=== PATIENT | female | born 1950 | race Caucasian/White ===

== ENCOUNTER 2016-08-12 01:30 | Emergency (ER) | payer MEDICARE ==
[~2016-08-12] VITALS: Ht 160 cm; Wt 57.8 kg
[~2016-08-12 01:30] MED LIST: ANTIVERT25 MG OR; ASPIRIN EC81 MG PO; FERRO SEQUELS PO; FISH OIL1000 MG PO; HYDROCO/APAP1 TA9 PO; TRAMADOL HCL50 MG PO; TYLENOL 500MG TAB PO; VITAMIN D32000 UNIT PO; XARELTO10 MG PO; ZPAK PO; [UNRECOGNIZED DRUG - OTHER] PO
[2016-08-12] MEDS ORDERED: LORTAB 10-325 M1 TAB PO (02:04)
[2016-08-12] MEDS ORDERED: MELOXICAM7.5 MG PO (02:05)
[2016-08-12] MEDS ORDERED: ASPIRIN 8181 MG PO (02:05)
[2016-08-12] MEDS ORDERED: MELOXICAM15 MG PO (02:06)
[2016-08-12 02:11] LABS: HEMATOCRIT 43.6 % (37.0-47.0); HEMOGLOBIN 14.2 g/dl (12.0-16.0); IMMATURE GRANULOCYTES 0.3 % (0.0-1.0); MEAN CELL VOLUME 86.9 fL CALC (80.0-100.0); MEAN CORPUSCULAR HGB 28.3 pG CALC (26.0-32.0); MEAN CORPUSCULAR HGB CONC 32.6 g/L CALC (32.0-36.0); NEUT# 7.89 thou/uL (2.00-7.15); RED BLOOD COUNT 5.02 mill/uL (4.20-5.60); RED CELL DISTRI WIDTH 13.3 % (11.5-15.5)
[2016-08-12 02:23] LABS: ALBUMIN 4.7 g/dL (3.2-5.0); ALKALINE PHOSPHATASE 107 u/l (38-126); ANION GAP 16 (6-22 (CALC)); BILIRUBIN, TOTAL 0.5 mg/dL (0.0-1.4); BUN 29 mg/dL (8-23); BUN/CREATININE RATIO 31 (12-20 (CALC)); CALCIUM 10.3 mg/dL (8.4-10.2); CARBON DIOXIDE 27 mmol/l (22-30); CHLORIDE 103 mmol/l (95-108); CREATININE 0.9 mg/dL (0.5-1.0); GFR > 60 ML/MIN (>=60 (CALC)); GFR FOR AFR.AMER. > 60 ML/MIN (>=60 (CALC)); GLUCOSE 104 mg/dL (82-115); POTASSIUM 4.3 mmol/l (3.5-5.1); SGOT/AST 31 u/l (9-36); SGPT/ALT 27 u/l (11-66); SODIUM 141 mmol/l (137-146); TOTAL PROTEIN 8.2 g/dL (6.3-8.2)
[2016-08-12 02:35] LABS: MYOGLOBIN 62 ng/mL (0 - 62)
[2016-08-12 03:44] LABS: ACT PARTIAL THROMBO TIME 27.9 SECONDS (20.0-32.5); INTERNATIONAL NORMALIZED RATIO 0.9 RATIO (0.7-1.3)
[2016-08-12 04:40] VITALS: BP 129/77
== END 2016-08-12 04:44 | disposition short-term general hospital (02) ==
LOC: ED 01:30 → ED-I 01:44 → ED 01:44 → ED-I 02:30 → ED 04:44
PROVIDERS: Emergency Medicine
DX: R07.9 Chest pain, unspecified (principal); R00.2 Palpitations; R94.31 Abnormal electrocardiogram [ECG] [EKG]; R79.89 Other specified abnormal findings of blood chemistry

== ENCOUNTER 2018-02-20 20:33 | Observation (INO) | payer MEDICARE ==
[~2018-02-20] VITALS: Ht 165.1 cm; Wt 58.8 kg
[~2018-02-20 20:33] MED LIST changes: +ASPIRIN 8181 MG PO; +LORTAB 10-325 M1 TAB PO; +MELOXICAM15 MG PO; +MELOXICAM7.5 MG PO
[2018-02-20] MEDS ORDERED: CRESTOR5 MG PO (21:06)
[2018-02-20] MEDS ORDERED: METOPROL TAR25 MG PO (21:06)
[2018-02-20] MEDS ORDERED: ZESTRIL10 M1 PO (21:07)
[2018-02-20 21:22] LABS: HEMATOCRIT 42.3 % (37.0-47.0); HEMOGLOBIN 13.7 g/dl (12.0-16.0); IMMATURE GRANULOCYTES 0.3 % (0.0-5.0); MEAN CELL VOLUME 86.3 fL CALC (80.0-100.0); MEAN CORPUSCULAR HGB CONC 32.4 g/L CALC (32.0-36.0); NEUT# 7.07 thou/uL (2.00-7.15); RED BLOOD COUNT 4.9 mill/uL (4.20-5.60); RED CELL DISTRI WIDTH 13.1 % (11.5-15.5)
[2018-02-20 21:32] LABS: ALBUMIN 4.6 g/dL (3.2-5.0); ALKALINE PHOSPHATASE 82 u/l (38-126); AMYLASE 117 u/l (30-110); ANION GAP 13 (6-22 (CALC)); BILIRUBIN, TOTAL 0.5 mg/dL (0.0-1.4); BUN 34 mg/dL (8-23); BUN/CREATININE RATIO 30 (12-20 (CALC)); CARBON DIOXIDE 28 mmol/l (22-30); CHLORIDE 103 mmol/l (95-108); CREATININE 1.1 mg/dL (0.5-1.0); GFR 49 ML/MIN (>=60 (CALC)); GFR FOR AFR.AMER. 60 ML/MIN (>=60 (CALC)); LIPASE 97 u/l (23-300); POTASSIUM 4.4 mmol/l (3.5-5.1); SGOT/AST 25 u/l (9-36); SODIUM 141 mmol/l (137-146)
[2018-02-20 21:45] LABS: MYOGLOBIN 42 ng/mL (0 - 62)
--- NOTE | 2018-02-20 22:28 | NUR ---
PT C/O BACK PAIN GETTING WORSE. NOTIFIED.
--- NOTE | 2018-02-20 23:25 | NUR ---
PT UP TO BR TO VOID
--- NOTE | 2018-02-21 00:22 | NUR ---
DR TO BEDSIDE TO RE-EVAL
--- NOTE | 2018-02-21 01:16 | NUR ---
PT IS NOW PAIN FREE. REPORT TO RICKY AGUILAR
--- NOTE | 2018-02-21 01:20 | NUR ---
PT TO FLOOR VIA STRETCHER WITH POCKET MONITOR. STATES PAIN IS GONE... WE GOT ON THE ELEVATOR...PT FELT LIKE SHE WAS GOING TO VOMIT...PT DELIVERED TO ROOM. NO VOMITING.
[2018-02-21 01:25] VITALS: BP 149/77
--- NOTE | 2018-02-21 01:46 | NUR ---
PT ARRVIED TO UNIT AT 0122 VIA STRETCHER WITH ER STAFF. PT AMBULATED TO BED WITH ONE PERSON ASSIST; ALERT AND ORIENTED. C/O MILD BACK PAIN AND NAUSEA AFTER BEING ON THE ELEVATOR. STATES THAT THE DILAUDID WAS EFFECTIVE FOR HER ABDOMINAL PAIN. RESPIRATIONS EVEN AND UNLABORED ON ROOM AIR. VS STABLE AND BLOOD PRESSURE DOWN FROM IN ER. PT REPORTS LAST BM WAS YESTERDAY AFTERNOON AND FELT NORMAL; ABDOMEN IS SOFT AND TENDER; BOWEL SOUNDS HYPOACTIVE. PT BECAME TEARFUL WHEN DISCUSSING HER CHRONIC PAIN AND PAIN MANAGEMENT STATING, "I KNOW I'M PROBABLY ADDICTED TO THE PAIN MEDS, BUT MY KNEE HAS NEVER RECOVERED SINCE THE SURGERY." ORIENTED TO ROOM AND CALL LIGHT SYSTEM. PLAN OF CARE DISCUSSED. PT ENCOURAGED TO VERBALIZE CONCERNS. STATES UNDERSTANDING. SAFETY MEASURES IN PLACE. CALL LIGHT WITHIN REACH.
--- NOTE | 2018-02-21 04:10 | NUR ---
PT RESTING IN BED WITH EYES CLOSED; AWAKENS SPONTANEOUSLY FOR VS. CONTINUES TO HAVE MILD BACK AND ABDOMINAL PAIN. RESPIRATIONS EVEN AND UNLABORED ON ROOM AIR. TELE ON. IV FLUIDS INFUSING WITHOUT DIFFICULTY; IV SITE APPEARS HEALTHY. NO ACUTE CHANGES IN CONDITION THROUGHOUT THE NIGHT. SAFETY MEASURES IN PLACE; FALL RISK. CALL LIGHT WITHIN REACH.
[2018-02-21 05:06] VITALS: BP 105/63
[2018-02-21 08:15] VITALS: BP 144/59
--- NOTE | 2018-02-21 08:15 | NUR ---
ASSESSMENT IS COMPLETED: IV SITE IS FREE FROM REDNESS OR EDEMA. HR IS REG,PULSES ARE STRONG X4, ABD IS SOFT WITH ACTIVE BS. BREATH SOUNDS ARE CLEAR, BILATERALLY. TELE MONITOR IN PLACE. CONTINUE TO OSBERVE AND MONITOR
[2018-02-21 11:03] VITALS: BP 140/56
[2018-02-21 11:11] LABS: URINE BILIRUBIN - DIPSTICK NEGATIVE (NEGATIVE); URINE BLOOD DIPSTICK SMALL (NEGATIVE); URINE COLOR YELLOW; URINE GLUCOSE - DIPSTICK NEGATIVE (NEGATIVE); URINE KETONE TRACE mg/dL (NEGATIVE); URINE LEUK ESTERASE TRACE (NEGATIVE); URINE NITRITE - DIPSTICK NEGATIVE (Negative); URINE PROTEIN - DIPSTICK NEGATIVE (NEG-TRACE); URINE SPECIFIC GRAVITY 1.015; URINE UROBILINOGEN - DIPSTICK 0.2 E.U./dL (0.2)
[2018-02-21 11:22] LABS: URINE CLARITY TURBID
[2018-02-21 11:26] LABS: URINE SQUAMOUS EPITHELIAL CELL FEW EPI/hpf (0-FEW)
--- NOTE | 2018-02-21 12:00 | NUR ---
PT IS RELAXING IN BED , HAS BEEN UP TO VOID, NO DISTRESS NOTED. IV SITE IS FREE FROM REDNESS OR EDEMA. CONTINUE TO OSBERVE AND MONITOR.
[2018-02-21] MEDS ORDERED: MIRALAX3350 NF PO (12:46)
--- NOTE | 2018-02-21 14:33 | NUR ---
Spoke with patient about medications. She had no questions at this time about therapy. Counseled about opioid constipation and safe laxative options to use for opioid constipation. Patient understood information given and was told to contact pharmacy with any further questions.
[2018-02-21 15:17] VITALS: BP 131/53
--- NOTE | 2018-02-21 16:15 | NUR ---
IV SITE DISCONTINEUD CATHETER INTACT. WAITING ON PT TO HAVE A BM. PRIOR TO DISCHARGE. CONITNUE TO OSBERVE AND MONITOR.
--- NOTE | 2018-02-21 20:50 | NUR ---
Discharge instructions given. Patient verbalizes understanding of same. Discharged in good condition via Wheelchair to Home with family. All belongings sent with pt.
== END 2018-02-21 20:00 | disposition home or self-care (01) ==
LOC: ED 20:33 → ED-I 02-21 → ED 02-21 00:32 → MS2 02-21 00:33
PROVIDERS: Emergency Medicine; ADMIT Internal Medicine; ATTEND Internal Medicine
DX: K59.09 Other constipation (principal); I10 Essential (primary) hypertension; E78.5 Hyperlipidemia, unspecified; I25.2 Old myocardial infarction; M25.561 Pain in right knee; M54.5 Low back pain; G89.29 Other chronic pain; M19.90 Unspecified osteoarthritis, unspecified site; Z79.891 Long term (current) use of opiate analgesic; R07.9 Chest pain, unspecified
CPT/HCPCS: Q9967; S0164

== ENCOUNTER 2018-05-11 07:27 | Observation (INO) | payer MEDICARE ==
[~2018-05-11] VITALS: Ht 162.6 cm; Wt 56.0 kg
[~2018-05-11 07:27] MED LIST changes: +CRESTOR5 MG PO; +METOPROL TAR25 MG PO; +MIRALAX3350 NF PO; +ZESTRIL10 M1 PO
--- NOTE | 2018-05-11 07:44 | NUR ---
TO TX ROOM
[2018-05-11 08:59] LABS: HEMATOCRIT 41.9 % (37.0-47.0); HEMOGLOBIN 13.8 g/dl (12.0-16.0); IMMATURE GRANULOCYTES 0.3 % (0.0-5.0); MEAN CELL VOLUME 86.9 fL CALC (80.0-100.0); MEAN CORPUSCULAR HGB 28.6 pG CALC (26.0-32.0); MEAN CORPUSCULAR HGB CONC 32.9 g/L CALC (32.0-36.0); NEUT# 8.75 thou/uL (2.00-7.15); RED BLOOD COUNT 4.82 mill/uL (4.20-5.60); RED CELL DISTRI WIDTH 13.1 % (11.5-15.5)
[2018-05-11 09:16] LABS: ALBUMIN 4.7 g/dL (3.2-5.0); ALKALINE PHOSPHATASE 73 u/l (38-126); ANION GAP 15 (6-22 (CALC)); BILIRUBIN, TOTAL 0.7 mg/dL (0.0-1.4); BUN 23 mg/dL (8-23); BUN/CREATININE RATIO 21 (12-20 (CALC)); CARBON DIOXIDE 28 mmol/l (22-30); CHLORIDE 100 mmol/l (95-108); CREATININE 1.1 mg/dL (0.5-1.0); GFR 49 ML/MIN (>=60 (CALC)); GFR FOR AFR.AMER. 59 ML/MIN (>=60 (CALC)); LIPASE 73 u/l (23-300); POTASSIUM 4.8 mmol/l (3.5-5.1); SGOT/AST 25 u/l (9-36); SODIUM 139 mmol/l (137-146); TOTAL PROTEIN 7.9 g/dL (6.3-8.2)
--- NOTE | 2018-05-11 09:29 | NUR ---
PT STATES SHE TOOK 325 ASA THIS AM AT 0710. HELD ORDERED ASA.
--- NOTE | 2018-05-11 10:30 | NUR ---
RESTING QUIETLY AWAITING TEST RESULTS
--- NOTE | 2018-05-11 11:30 | NUR ---
RESTING QUIETLY. AWAITING DISPO.
--- NOTE | 2018-05-11 12:55 | NUR ---
Admission Note Report Given to: RICKY PERKINS Transported by: Wheelchair X Stretcher Transported with: X Nurse Transporter X Patent IV O2 X Filer And Sander
[2018-05-11 13:00] VITALS: BP 140/65
--- NOTE | 2018-05-11 14:00 | NUR ---
PT RECEIVED TO MED/SURG FLOOR WITH PARTIAL SBO. NO COMPLAINT OF EXTREME PAIN, BUT SHE IS VERY AWARE AND UNCOMFORTABLE WITH NG TUBE. ADMISSION ASSESSMENT COMPLETE, PT RESTS IN THE BED IN MODERATE DISCOMFORT. DR PINZON HAS SEEN PT.
[2018-05-11 14:09] LABS: URINE BILIRUBIN - DIPSTICK NEGATIVE (NEGATIVE); URINE BLOOD DIPSTICK TRACE-LYSED (NEGATIVE); URINE COLOR YELLOW; URINE GLUCOSE - DIPSTICK NEGATIVE (NEGATIVE); URINE KETONE NEGATIVE (NEGATIVE); URINE LEUK ESTERASE NEGATIVE (NEGATIVE); URINE NITRITE - DIPSTICK NEGATIVE (Negative); URINE PROTEIN - DIPSTICK NEGATIVE (NEG-TRACE); URINE SPECIFIC GRAVITY <=1.005; URINE UROBILINOGEN - DIPSTICK 0.2 E.U./dL (0.2)
[2018-05-11 16:03] VITALS: BP 117/62
--- NOTE | 2018-05-11 19:12 | NUR ---
PT IS IN BED, NGTUB TO KELVIN ON LOW INTERMITTENT SUCTION W/SMALL AMOUNT OF YELLOW OUTPUT. PT REPORTS THAT PAIN MEDICATION IS MAKING HER FEEL DIZZY AND WEIRD, BUT THAT DISCOMFORT IS GONE. PT REQUESTED LIGHTS TURNED OFF AND TV LEFT ON LOW. PT ENCOURAGED TO CALL NEEDS ARISE.
[2018-05-11 19:15] VITALS: BP 119/71
--- NOTE | 2018-05-11 21:33 | NUR ---
PT ASSESSED, NGT CHECKED FOR PLACEMENT, DRAINING YELLOW/GREEN FLUID ON LOW INTERMITTENT SUCTION, ABD SOFT NON-TENDER W/HYPO-ACTIVE BOWEL SOUNDS, LUNG SOUNDS ARE CLEAR, PT LOCX4, NO NOTED EDEMA, NEURO'S INTACT. V/S ASSESSED. WILL CONTINUE TO MONITOR. CALL LIGHT AT SIDE AND PT ENCOURAGED TO CALL NEEDS ARISE. DENIES ANY OTHER NEEDS AT THIS TIME.
--- NOTE | 2018-05-12 03:45 | NUR ---
PT ASSISTED TO BSC AND BACK TO BED. NGT DRAINING YELLOW/GREEN FLUID ON LOW INTERMITTENT SUCTION. V/S ARE BEING OBTAINED AT THIS TIME. AIDE IN W/PT.
[2018-05-12 04:10] VITALS: BP 134/68
--- NOTE | 2018-05-12 05:26 | NUR ---
PT CALLED TO REPORT THAT "GASTROGRAFIN IS MAKING MY HEART RACE." V/S ASSESSED BP 153/82,HR82. ED REPORTS ON TELEMETRY READING SR89. DENIES SOB, REPORTS IT FEELING LIKE IT IS "JUST BEATING FAST." ORDERED STAT EKG, WILL AWAIT RESULTS AND NOTIFY PHYSICIAN.
[2018-05-12 06:06] LABS: HEMATOCRIT 40.3 % (37.0-47.0); HEMOGLOBIN 12.9 g/dl (12.0-16.0); IMMATURE GRANULOCYTES 0.1 % (0.0-5.0); MEAN CELL VOLUME 87.4 fL CALC (80.0-100.0); NEUT# 5.08 thou/uL (2.00-7.15); RED BLOOD COUNT 4.61 mill/uL (4.20-5.60); RED CELL DISTRI WIDTH 13.2 % (11.5-15.5)
[2018-05-12 06:30] LABS: ALBUMIN 3.9 g/dL (3.2-5.0); ALKALINE PHOSPHATASE 65 u/l (38-126); AMYLASE 110 u/l (30-110); ANION GAP 14 (6-22 (CALC)); BILIRUBIN, TOTAL 0.8 mg/dL (0.0-1.4); BUN 17 mg/dL (8-23); BUN/CREATININE RATIO 17 (12-20 (CALC)); CARBON DIOXIDE 25 mmol/l (22-30); CHLORIDE 103 mmol/l (95-108); GFR 55 ML/MIN (>=60 (CALC)); GFR FOR AFR.AMER. > 60 ML/MIN (>=60 (CALC)); LIPASE 108 u/l (23-300); MAGNESIUM 2.2 mg/dL (1.6-2.3); POTASSIUM 4.2 mmol/l (3.5-5.1); SGOT/AST 16 u/l (9-36); SODIUM 138 mmol/l (137-146); TOTAL PROTEIN 6.4 g/dL (6.3-8.2)
--- NOTE | 2018-05-12 07:45 | NUR ---
REPORT RECIEVED FROM RICKY VELASQUEZ. PT SITTING UPRIGHT IN BED. FLAT AFFECT. REPORTS HEADACHE AND PAIN TO NOSE/THROAT R/T NGT. NGT TO LIWS. PLAN OF CARE DISCUSSED. REPORTING OF CONCERNS ENCOURAGED. CALL LIGHT REVIEWED AND IN REACH. PT STATES UNDERSTANDING.
[2018-05-12 09:35] VITALS: BP 141/55
--- NOTE | 2018-05-12 13:00 | NUR ---
NGT REMOVED PER DR PINZON AND JASON LANDEROS
--- NOTE | 2018-05-12 16:51 | NUR ---
PT TOLERATING CLEAR LIQUIDS. DENIES NAUSEA AND ABD PAIN. STILL REPORTS HEADACHE. JASON LANDEROS NOTIFIED.
[2018-05-12 17:00] VITALS: BP 140/58
--- NOTE | 2018-05-12 19:15 | NUR ---
PT RESTING QUIETLY IN BED. UP TO RESTROOM AT THIS TIME WITH STEADY GAIT. C/O OF LINGERING HEADACHE. NO NEEDS AT THIS TIME. CALL JAIN IN REACH. WILL CONTINUE TO MONITOR.
[2018-05-12 20:05] VITALS: BP 125/67
--- NOTE | 2018-05-12 21:21 | NUR ---
PT RESTING IN BED. WITH EYES CLOSED WAKES TO VERBAL STIMULI. HEADACHE HAS RESOLVED. ASSESMENT COMPLETED AT THIS TIME(SEE INTERVENTIONS) LUNG SOUNDS CLEAR/ WITH DIMINISHED BASES ON RIGHT SIDE. BOWEL SOUNDS HYPO ACTIVE, HEART SOUNDS NORMAL, NO ABD PAIN OR TENDERNESS. NO NEEDS AT THIS TIME. CALL JAIN IN REACH. WILL CONTINUE TO MONITOR.
[2018-05-12 21:55] VITALS: BP 106/64
[2018-05-12 23:35] VITALS: BP 130/77
--- NOTE | 2018-05-13 02:00 | NUR ---
PT ASLEEP AT THIS TIME. NO S/S OF DISTRESS NOTED. CALL JAIN IN REACH. WILL CONTINUE TO MONITOR.
[2018-05-13 04:21] VITALS: BP 148/71
--- NOTE | 2018-05-13 04:50 | NUR ---
PT C/O LEG PAIN. MEDICATED PER ORDER FOR PAIN. NO OTHER NEEDS AT THIS TIME. CALL JAIN IN REACH. WILL CONTINUE TO MONITOR.
--- NOTE | 2018-05-13 04:52 | NUR ---
PT MEDICATED FOR PAIN REPORTED 7/10 HEADACHE AND "JUMPY LEGS." ASSISTED W/PO FLUIDS. DENIES ANY OTHER NEEDS AT THIS TIME. ENCOURAGED TO CALL ASSISTANCE IS NEEDED.
[2018-05-13 05:32] LABS: HEMATOCRIT 36.2 % (37.0-47.0); IMMATURE GRANULOCYTES 0.3 % (0.0-5.0); MEAN CELL VOLUME 86.6 fL CALC (80.0-100.0); MEAN CORPUSCULAR HGB 28.7 pG CALC (26.0-32.0); MEAN CORPUSCULAR HGB CONC 33.1 g/L CALC (32.0-36.0); NEUT# 4.28 thou/uL (2.00-7.15); RED BLOOD COUNT 4.18 mill/uL (4.20-5.60); RED CELL DISTRI WIDTH 12.8 % (11.5-15.5)
[2018-05-13 05:43] LABS: ALBUMIN 3.6 g/dL (3.2-5.0); ALKALINE PHOSPHATASE 58 u/l (38-126); AMYLASE 97 u/l (30-110); ANION GAP 11 (6-22 (CALC)); BILIRUBIN, TOTAL 0.5 mg/dL (0.0-1.4); BUN 9 mg/dL (8-23); BUN/CREATININE RATIO 11 (12-20 (CALC)); CARBON DIOXIDE 26 mmol/l (22-30); CHLORIDE 107 mmol/l (95-108); CREATININE 0.9 mg/dL (0.5-1.0); GFR > 60 ML/MIN (>=60 (CALC)); GFR FOR AFR.AMER. > 60 ML/MIN (>=60 (CALC)); LIPASE 130 u/l (23-300); POTASSIUM 4.1 mmol/l (3.5-5.1); SGOT/AST 14 u/l (9-36); SODIUM 140 mmol/l (137-146)
[2018-05-13 06:11] VITALS: BP 124/51
--- NOTE | 2018-05-13 06:55 | NUR ---
REPORT RECEIVED FROM HELEN WOODWARD; PT AWAKE LAYING IN BED, RESP EVEN AND UNLABORED; VOICE NO CONCERNS; CALL JAIN IN REACH.
[2018-05-13 08:46] VITALS: BP 128/54
--- NOTE | 2018-05-13 08:59 | NUR ---
PT SITTING UP IN BED WATCHING TV; RESP EVEN AND UNLABORED ON ROOM AIR; TELE IN PLACE; READING SR WITH IVCD 79; IVF FLOWING WITHOUT DIFFICULTY; SITE APPEARS HEALTHY; NO NAUSEA OR PAIN; VITALS OBTAINED TEMP 98.8, RESP 16, PULSE 77; B/P 125/54; O2 99 ON ROOM AIR; PT AMBULATORY IN ROOM; MEDICATED PER EMAR; CALL PT DECLINE A SHOWER; HOPING TO GO HOME TODAY; CALL JAIN IN REACH; SAFETY PRECAUTION REINFORCE;
[2018-05-13 11:04] VITALS: BP 115/67
--- NOTE | 2018-05-13 11:42 | NUR ---
DR YOUNGBLOOD AT BEDSIDE TO DISCUSS POC; POSSIBLE DC HOME TODAY;
[2018-05-13 15:19] VITALS: BP 159/84
--- NOTE | 2018-05-13 16:26 | NUR ---
DC INSTRUCTIONS GIVEN TO PT; PT VERBALIZE UNDERSTANDING; STATES SHE'S ABLE TO DRIVE SELF HOME SINCE HER CAR IS IN THE PARKING LOT; IV REMOVE, CATH TIP INTACT;
== END 2018-05-13 16:45 | disposition home or self-care (01) ==
LOC: ED 07:27 → ED-I 10:25 → ED 10:58 → MS2 10:59
PROVIDERS: Family Medicine; Nurse Practitioner Family; ADMIT Internal Medicine Nephrology; ATTEND Internal Medicine Nephrology
DX: K56.600 Partial intestinal obstruction, unspecified as to cause (principal); I12.9 Hypertensive chronic kidney disease with stage 1 through stage 4 chronic kidney disease, or unspecified chronic kidney disease; N18.3 Chronic kidney disease, stage 3 (moderate); E78.5 Hyperlipidemia, unspecified; M19.90 Unspecified osteoarthritis, unspecified site; G89.29 Other chronic pain; M25.561 Pain in right knee; I25.2 Old myocardial infarction; R10.13 Epigastric pain; R07.9 Chest pain, unspecified; M54.5 Low back pain
CPT/HCPCS: J1650; Q9967; S0164

== ENCOUNTER 2019-02-02 02:49 | Emergency (ER) | payer MEDICARE ==
[~2019-02-02] VITALS: Ht 162.6 cm; Wt 60.0 kg
[2019-02-02 04:00] LABS: HEMATOCRIT 39.2 % (37.0-47.0); HEMOGLOBIN 12.9 g/dl (12.0-16.0); IMMATURE GRANULOCYTES 0.2 % (0.0-5.0); MEAN CELL VOLUME 87.3 fL CALC (80.0-100.0); MEAN CORPUSCULAR HGB 28.7 pG CALC (26.0-32.0); MEAN CORPUSCULAR HGB CONC 32.9 g/L CALC (32.0-36.0); NEUT# 7.08 thou/uL (2.00-7.15); RED BLOOD COUNT 4.49 mill/uL (4.20-5.60); RED CELL DISTRI WIDTH 13.2 % (11.5-15.5)
[2019-02-02 04:16] LABS: ALBUMIN 4.2 g/dL (3.2-5.0); ALKALINE PHOSPHATASE 52 u/l (38-126); ANION GAP 11 (6-22 (CALC)); BILIRUBIN, TOTAL 0.5 mg/dL (0.0-1.4); BUN 21 mg/dL (8-23); BUN/CREATININE RATIO 23 (12-20 (CALC)); CARBON DIOXIDE 27 mmol/l (22-30); CHLORIDE 102 mmol/l (95-108); CREATININE 0.9 mg/dL (0.5-1.0); GFR > 60 ML/MIN (>=60 (CALC)); GFR FOR AFR.AMER. > 60 ML/MIN (>=60 (CALC)); POTASSIUM 4.2 mmol/l (3.5-5.1); SGOT/AST 18 u/l (9-36); SODIUM 136 mmol/l (137-146); TOTAL PROTEIN 7.2 g/dL (6.3-8.2)
[2019-02-02 04:28] LABS: MYOGLOBIN 43 ng/mL (0 - 62)
[2019-02-02 04:38] LABS: URINE BILIRUBIN - DIPSTICK NEGATIVE (NEGATIVE); URINE BLOOD DIPSTICK SMALL (NEGATIVE); URINE COLOR YELLOW; URINE GLUCOSE - DIPSTICK NEGATIVE (NEGATIVE); URINE KETONE NEGATIVE (NEGATIVE); URINE NITRITE - DIPSTICK NEGATIVE (Negative); URINE PH 5.5 (4.5-8.0); URINE PROTEIN - DIPSTICK NEGATIVE (NEG-TRACE); URINE UROBILINOGEN - DIPSTICK 0.2 E.U./dL (0.2)
[2019-02-02 04:41] LABS: URINE LEUK ESTERASE SMALL (NEGATIVE)
[2019-02-02 04:43] LABS: BARBITURATES NEGATIVE (NEGATIVE); COCAINE NEGATIVE (NEGATIVE); METHADONE NEGATIVE (NEGATIVE); OXCYCODONE POSITIVE (NEGATIVE); TETRAHYDROCANNABIONOL NEGATIVE (NEGATIVE); TRICYLIC ANTIDEPRESSANTS NEGATIVE (NEGATIVE)
[2019-02-02 04:47] LABS: URINE SQUAMOUS EPITHELIAL CELL FEW EPI/hpf (0-FEW)
[2019-02-02] MEDS ORDERED: BACTRIM DS1 TAB PO (04:54)
[2019-02-02] MEDS ORDERED: XANAX0.25 MG PO (04:54)
[2019-02-02 05:00] VITALS: BP 167/70
== END 2019-02-02 05:08 | disposition home or self-care (01) ==
LOC: ED 02:49
PROVIDERS: Emergency Medicine
DX: F41.9 Anxiety disorder, unspecified (principal); N39.0 Urinary tract infection, site not specified; B96.4 Proteus (mirabilis) (morganii) as the cause of diseases classified elsewhere; I10 Essential (primary) hypertension; I25.2 Old myocardial infarction

== ENCOUNTER 2019-02-08 05:31 | Emergency (ER) | payer MEDICARE ==
[~2019-02-08] VITALS: Ht 162.6 cm; Wt 51.0 kg
[~2019-02-08 05:31] MED LIST changes: +BACTRIM DS1 TAB PO; +XANAX0.25 MG PO
[2019-02-08] MEDS ORDERED: IBUPROFEN600 MG PO (06:19)
[2019-02-08] MEDS ORDERED: ORPHENADRINE C100 M1 PO (06:19)
[2019-02-08 07:18] VITALS: BP 153/82
== END 2019-02-08 07:18 | disposition home or self-care (01) ==
LOC: ED 05:31
DX: M79.10 Myalgia, unspecified site (principal); I10 Essential (primary) hypertension; I25.2 Old myocardial infarction

== ENCOUNTER 2019-02-11 12:46 | Emergency (ER) | payer MEDICARE ==
[~2019-02-11] VITALS: Ht 162.6 cm; Wt 45.0 kg
[~2019-02-11 12:46] MED LIST changes: +IBUPROFEN600 MG PO; +ORPHENADRINE C100 M1 PO
[2019-02-11] MEDS ORDERED: OXYCOD-APAP1 TA1 PO (13:54)
[2019-02-11] MEDS ORDERED: WELLBUTRIN150 M2 PO (13:56)
[2019-02-11] MEDS ORDERED: BACTRIM DS1 TAB PO (13:58)
[2019-02-11 14:07] LABS: IMMATURE GRANULOCYTES 0.3 % (0.0-5.0); MEAN CELL VOLUME 87.4 fL CALC (80.0-100.0); MEAN CORPUSCULAR HGB 28.4 pG CALC (26.0-32.0); MEAN CORPUSCULAR HGB CONC 32.5 g/L CALC (32.0-36.0); NEUT# 7.42 thou/uL (2.00-7.15); RED BLOOD COUNT 5.25 mill/uL (4.20-5.60); RED CELL DISTRI WIDTH 13.5 % (11.5-15.5)
[2019-02-11 14:12] LABS: HEMATOCRIT 45.9 % (37.0-47.0); HEMOGLOBIN 14.9 g/dl (12.0-16.0)
[2019-02-11 14:22] LABS: ALBUMIN 4.7 g/dL (3.2-5.0); BILIRUBIN, TOTAL 0.5 mg/dL (0.0-1.4); CREATININE 1.1 mg/dL (0.5-1.0); MAGNESIUM 2.3 mg/dL (1.6-2.3)
[2019-02-11 14:36] LABS: POTASSIUM 5.1 mmol/l (3.5-5.1)
[2019-02-11 14:46] LABS: URINE BILIRUBIN - DIPSTICK NEGATIVE (NEGATIVE); URINE BLOOD DIPSTICK SMALL (NEGATIVE); URINE COLOR YELLOW; URINE GLUCOSE - DIPSTICK NEGATIVE (NEGATIVE); URINE KETONE NEGATIVE (NEGATIVE); URINE LEUK ESTERASE NEGATIVE (NEGATIVE); URINE NITRITE - DIPSTICK NEGATIVE (Negative); URINE PROTEIN - DIPSTICK NEGATIVE (NEG-TRACE); URINE UROBILINOGEN - DIPSTICK 0.2 E.U./dL (0.2)
[2019-02-11 14:50] LABS: BARBITURATES NEGATIVE (NEGATIVE); COCAINE NEGATIVE (NEGATIVE); METHADONE NEGATIVE (NEGATIVE); OXCYCODONE POSITIVE (NEGATIVE); TETRAHYDROCANNABIONOL NEGATIVE (NEGATIVE); TRICYLIC ANTIDEPRESSANTS NEGATIVE (NEGATIVE)
[2019-02-11 14:52] LABS: TSH, 3RD GENERATION 1.05 uIU/mL (0.47 - 4.68)
[2019-02-11 14:56] LABS: URINE SQUAMOUS EPITHELIAL CELL FEW EPI/hpf (0-FEW); URINE WBC 0-2 WBC/hpf (0-5)
[2019-02-11 15:45] VITALS: BP 143/62
== END 2019-02-11 15:45 | disposition home or self-care (01) ==
LOC: ED 12:46
DX: F41.9 Anxiety disorder, unspecified (principal); E78.00 Pure hypercholesterolemia, unspecified; M81.0 Age-related osteoporosis without current pathological fracture; I25.2 Old myocardial infarction

== ENCOUNTER 2021-04-17 10:01 | Emergency (ER) | payer MEDICARE ==
[~2021-04-17] VITALS: Ht 162.6 cm; Wt 60.0 kg
[~2021-04-17 10:01] MED LIST changes: +OXYCOD-APAP1 TA1 PO; +WELLBUTRIN150 M2 PO
[2021-04-17 11:34] LABS: HEMATOCRIT 45.1 % (37.0-47.0); HEMOGLOBIN 14.6 g/dl (12.0-16.0); MEAN CELL VOLUME 88.6 fL CALC (80.0-100.0); MEAN CORPUSCULAR HGB 28.7 pG CALC (26.0-32.0); MEAN CORPUSCULAR HGB CONC 32.4 g/dL CAL (32.0-36.0); NEUT# 5.96 thou/uL (2.00-7.15); RED BLOOD COUNT 5.09 mill/uL (4.20-5.60)
[2021-04-17 11:39] LABS: ALBUMIN 4.5 g/dL (3.2-5.0); ALKALINE PHOSPHATASE 75 u/l (38-126); ANION GAP 13 (6-22 (CALC)); BILIRUBIN, TOTAL 0.5 mg/dL (0.0-1.4); BUN 26 mg/dL (8-23); BUN/CREATININE RATIO 25 (12-20 (CALC)); CARBON DIOXIDE 28 mmol/l (22-30); CHLORIDE 102 mmol/l (95-108); GFR 55 ML/MIN (>=60 (CALC)); GFR FOR AFR.AMER. > 60 ML/MIN (>=60 (CALC)); LIPASE 77 u/l (23-300); MAGNESIUM 2.1 mg/dL (1.6-2.3); POTASSIUM 4.6 mmol/l (3.5-5.1); SGOT/AST 25 u/l (9-36); SODIUM 138 mmol/l (137-146)
[2021-04-17 11:40] LABS: ACT PARTIAL THROMBO TIME 24.7 SECONDS (20.0-32.5); INTERNATIONAL NORMALIZED RATIO 0.9 RATIO (0.7-1.3); PROTHROMBIN TIME 9.9 SECONDS (9.0-12.5)
[2021-04-17 13:48] VITALS: BP 161/71
== END 2021-04-17 13:30 | disposition home or self-care (01) ==
LOC: ED 10:01
DX: R00.2 Palpitations (principal); F41.9 Anxiety disorder, unspecified; I10 Essential (primary) hypertension; E78.00 Pure hypercholesterolemia, unspecified; I25.2 Old myocardial infarction; G89.29 Other chronic pain; M54.89 Other dorsalgia
CPT/HCPCS: Q9967

== ENCOUNTER 2023-12-05 04:30 | Emergency (ER) | payer MEDICARE ==
[~2023-12-05] VITALS: Ht 162.6 cm; Wt 57.0 kg
[~2023-12-05 04:30] MED LIST changes: +CLONIDINE0.1 MG PO; +ONDANSETRON4 MG PO; +PREDNISONE20 MG PO
[2023-12-05] MEDS ORDERED: ALPRAZolam 0.5 MG/TAB PO ONE (05:10)
[2023-12-05] MEDS ORDERED: KETOROLAC TROMETHAMINE 30 MG/ML SDV IV ONE (05:10)
[2023-12-05] MEDS ORDERED: ROXICODONE15 M1 PO (05:22)
[2023-12-05 05:30] VITALS: BP 156/91
[2023-12-05 06:00] VITALS: BP 159/82
[2023-12-05 06:50] VITALS: BP 151/78
[2023-12-06] MEDS ORDERED: ZOFRAN4 MG/TAB PO (14:20)
[2023-12-06] MEDS ORDERED: BACTRIM DS1 TAB PO (14:20)
[2023-12-06] MEDS ORDERED: TRAMADOL HYDROC50 M1 PO (14:20)
== END 2023-12-05 06:50 | disposition home or self-care (01) ==
LOC: ED 04:30
DX: F11.23 Opioid dependence with withdrawal (principal); I10 Essential (primary) hypertension; E78.00 Pure hypercholesterolemia, unspecified; I25.2 Old myocardial infarction

== ENCOUNTER 2023-12-06 11:04 | Observation (INO) | payer MEDICARE ==
[2023-12-06] VITALS (37 sets, daily range): BP systolic 128–166; BP diastolic 54–134
[~2023-12-06] VITALS: Ht 162.6 cm; Wt 56.0 kg
[~2023-12-06 11:04] MED LIST changes: +ROXICODONE15 M1 PO
[2023-12-06 11:26] LABS: BASO% 0.5 % (0-3); EOS% 0.1 % (0-8); HEMOGLOBIN 15.5 g/dl (12.0-16.0); IMMATURE GRANULOCYTES 0.1 % (0.0-5.0); LYMPH% 27.1 % (15-41); MEAN CELL VOLUME 86.5 fL CALC (80.0-100.0); MEAN CORPUSCULAR HGB 27.9 pG CALC (26.0-32.0); MEAN CORPUSCULAR HGB CONC 32.3 g/dL CAL (32.0-36.0); MONO% 9.2 % (2-13); NEUT# 4.82 thou/uL (2.00-7.15); RED BLOOD COUNT 5.55 mill/uL (4.20-5.60); RED CELL DISTRI WIDTH 12.6 % (11.5-15.5)
[2023-12-06 11:50] LABS: ALBUMIN 4.8 g/dL (3.2-5.0); ALKALINE PHOSPHATASE 75 u/l (38-126); BUN 25 mg/dL (8-23); BUN/CREATININE RATIO 28 (12-20 (CALC)); CHLORIDE 107 mmol/l (95-108); CREATININE 0.9 mg/dL (0.5-1.0); ESTIMATED GFR 67 ML/MIN (>=90 (CALC)); ETHYL ALCOHOL 0 mg/dl (0-30); SGOT/AST 31 u/l (9-36); SODIUM 137 mmol/l (137-146); TOTAL PROTEIN 8.1 g/dL (6.3-8.2)
[2023-12-06 11:52] LABS: ANION GAP 13 (6-22 (CALC)); CARBON DIOXIDE 20 mmol/l (22-30); POTASSIUM 3.4 mmol/l (3.5-5.1)
[2023-12-06] MEDS ORDERED: SODIUM CHLORIDE 0.9% 1,000 ML IV ONE (12:20)
[2023-12-06] MEDS ORDERED: ONDANSETRON HCl 4 MG/2 ML SDV IV ONE (12:20)
[2023-12-06] MEDS ORDERED: HYDROcodone 5 MG/Acetaminophen 325 MG/COMBO PO ONE (12:20)
[2023-12-06 12:59] LABS: URINE BLOOD DIPSTICK Moderate (NEGATIVE); URINE GLUCOSE - DIPSTICK Negative (NEGATIVE); URINE KETONE 15 mg/dL (NEGATIVE); URINE NITRITE - DIPSTICK Negative (Negative); URINE PROTEIN - DIPSTICK 100 mg/dL (NEG-TRACE); URINE SPECIFIC GRAVITY 1.025; URINE UROBILINOGEN - DIPSTICK 0.2 E.U./dL (0.2)
[2023-12-06 13:00] LABS: URINE COLOR Yellow; URINE LEUK ESTERASE Small (NEGATIVE)
[2023-12-06 13:01] LABS: URINE BACTERIA FEW hpf; URINE EPITHELIAL CELLS MODERATE EPI/hpf (0-FEW)
[2023-12-06] MEDS ORDERED: ZOFRAN4 MG/TAB PO (14:20)
[2023-12-06] MEDS ORDERED: TRAMADOL HYDROC50 M1 PO (14:20)
[2023-12-06] MEDS ORDERED: BACTRIM DS1 TAB PO (14:20)
[2023-12-06] MEDS ORDERED: oxyCODONE 5MG/ ACETAMINOPHEN 325MG TAB PO ONE (23:15)
[2023-12-07] VITALS (26 sets, daily range): BP systolic 91–151; BP diastolic 43–76
[2023-12-07] MEDS ORDERED: cloNIDine HCL 0.1 MG/TAB PO ONE (08:55)
[2023-12-07] MEDS ORDERED: KETOROLAC TROMETHAMINE 30 MG/ML SDV IV ONE (09:00)
[2023-12-07] MEDS ORDERED: MAGNESIUM HYDROXIDE 30 ML UDC PO PRN (09:40)
[2023-12-07] MEDS ORDERED: ACETAMINOPHEN 325 MG/TAB PO PRN (09:40)
[2023-12-07] MEDS ORDERED: ONDANSETRON HCl 4 MG/2 ML SDV IV PRN (09:50)
[2023-12-07] MEDS ORDERED: oxyCODONE 10MG/APAP 325 MG 1 COMBO TAB PO PRN (11:45)
[2023-12-07] MEDS ORDERED: cloNIDine HCL 0.1 MG/TAB PO SCH (21:00)
[2023-12-07] MEDS ORDERED: ENOXAPARIN SODIUM 40 MG/0.4 ML SYR SC SCH (21:00)
[2023-12-07] MEDS ORDERED: LATANOPROST 2.5 ML BTL OU SCH (21:00)
[2023-12-08] VITALS: BP 109/56
[2023-12-08 04:00] VITALS: BP 103/45
[2023-12-08 05:34] LABS: BASO% 0.8 % (0-3); EOS% 1.8 % (0-8); IMMATURE GRANULOCYTES 0.2 % (0.0-5.0); LYMPH% 41.9 % (15-41); MEAN CELL VOLUME 85.5 fL CALC (80.0-100.0); MEAN CORPUSCULAR HGB 28.1 pG CALC (26.0-32.0); MEAN CORPUSCULAR HGB CONC 32.9 g/dL CAL (32.0-36.0); MONO% 10.1 % (2-13); NEUT# 2.2 thou/uL (2.00-7.15); NEUT% 45.2 % (42-76); RED BLOOD COUNT 4.48 mill/uL (4.20-5.60); RED CELL DISTRI WIDTH 12.8 % (11.5-15.5)
[2023-12-08 05:36] LABS: HEMATOCRIT 38.3 % (37.0-47.0); HEMOGLOBIN 12.6 g/dl (12.0-16.0)
[2023-12-08 05:56] LABS: BILIRUBIN, TOTAL 0.7 mg/dL (0.02-1.3); CHOLESTEROL HDL RATIO 2.8 (<4.4 (CALC)); CREATININE 0.9 mg/dL (0.5-1.0); MAGNESIUM 2.1 mg/dL (1.6-2.3); POTASSIUM 3.8 mmol/l (3.5-5.1)
[2023-12-08 06:06] LABS: ALBUMIN 3.7 g/dL (3.2-5.0); TOTAL PROTEIN 6.3 g/dL (6.3-8.2)
[2023-12-08] MEDS ORDERED: LISINOPRIL 10 MG/TAB PO SCH (09:00)
[2023-12-08] MEDS ORDERED: ASPIRIN 81 MG/TAB PO SCH (09:00)
[2023-12-08] MEDS ORDERED: ALPRAZolam 0.25 MG PO PRN (11:55)
[2023-12-08 15:31] VITALS: BP 128/32
[2023-12-08 20:30] VITALS: BP 124/58
[2023-12-08 22:00] VITALS: BP 104/51
[2023-12-08 23:00] VITALS: BP 114/59
[2023-12-09 06:02] LABS: ALBUMIN 3.3 g/dL (3.2-5.0); BASO% 0.7 % (0-3); CREATININE 0.9 mg/dL (0.5-1.0); EOS% 2.7 % (0-8); HEMATOCRIT 36.3 % (37.0-47.0); HEMOGLOBIN 12.1 g/dl (12.0-16.0); LYMPH% 47.4 % (15-41); MAGNESIUM 2.1 mg/dL (1.6-2.3); MEAN CELL VOLUME 85.6 fL CALC (80.0-100.0); MEAN CORPUSCULAR HGB 28.5 pG CALC (26.0-32.0); MEAN CORPUSCULAR HGB CONC 33.3 g/dL CAL (32.0-36.0); MONO% 10.5 % (2-13); NEUT# 1.74 thou/uL (2.00-7.15); NEUT% 38.7 % (42-76); POTASSIUM 3.6 mmol/l (3.5-5.1); RED BLOOD COUNT 4.24 mill/uL (4.20-5.60); RED CELL DISTRI WIDTH 12.9 % (11.5-15.5); TOTAL PROTEIN 5.8 g/dL (6.3-8.2)
[2023-12-09 06:22] LABS: BILIRUBIN, TOTAL 0.3 mg/dL (0.02-1.3)
[2023-12-10 05:25] LABS: BASO% 0.7 % (0-3); EOS% 3.5 % (0-8); HEMATOCRIT 37.7 % (37.0-47.0); HEMOGLOBIN 12.5 g/dl (12.0-16.0); LYMPH% 53.4 % (15-41); MEAN CELL VOLUME 85.9 fL CALC (80.0-100.0); MEAN CORPUSCULAR HGB 28.5 pG CALC (26.0-32.0); MEAN CORPUSCULAR HGB CONC 33.2 g/dL CAL (32.0-36.0); MONO% 10.1 % (2-13); NEUT# 1.37 thou/uL (2.00-7.15); NEUT% 32.3 % (42-76); RED BLOOD COUNT 4.39 mill/uL (4.20-5.60); RED CELL DISTRI WIDTH 12.9 % (11.5-15.5)
[2023-12-10 05:41] LABS: ALBUMIN 3.3 g/dL (3.2-5.0); BILIRUBIN, TOTAL 0.3 mg/dL (0.02-1.3); CREATININE 0.8 mg/dL (0.5-1.0); MAGNESIUM 2.2 mg/dL (1.6-2.3); TOTAL PROTEIN 5.7 g/dL (6.3-8.2)
[2023-12-10] MEDS ORDERED: PERCOCET 5/325M1 TAB PO (08:30)
[2023-12-10] MEDS ORDERED: LIDOCAINE 4 % PATCH TD SCH (09:00)
[2023-12-10 09:20] VITALS: BP 114/59
== END 2023-12-10 14:30 | disposition home or self-care (01) ==
LOC: ED 11:04 → ED-I 12-07 08:04 → ED 12-07 08:20 → ICU 12-07 08:21 → MS2 12-07 08:21 → ICU 12-07 09:11
PROVIDERS: Family Medicine; ADMIT Student in an Organized Health Care Education/Training Program; ATTEND Student in an Organized Health Care Education/Training Program
DX: G89.4 Chronic pain syndrome (principal); F43.23 Adjustment disorder with mixed anxiety and depressed mood; F11.93 Opioid use, unspecified with withdrawal; M17.11 Unilateral primary osteoarthritis, right knee; U07.1 COVID-19; I10 Essential (primary) hypertension; E78.00 Pure hypercholesterolemia, unspecified; I25.2 Old myocardial infarction; Z96.651 Presence of right artificial knee joint
CPT/HCPCS: J1650